=== PATIENT | female | born 1990 | race Caucasian/White ===

== ENCOUNTER 2022-12-18 20:20 | Emergency (ER) | payer SELFPAY ==
[2022-12-18] MEDS ORDERED: Sodium Chloride 0.9% 1,000 ML IV STA ×2 (20:52→23:01)
[2022-12-18 21:59] LABS: ACETAMINOPHEN 0 ug/mL (10-30); ESTIMATED GFR 77 mL/min (>60)
[2022-12-19] MEDS ORDERED: Magnesium Oxide 400 MG Tab PO ONE (02:48)
[2022-12-19] MEDS ORDERED: Sodium Chloride 0.9% 1,000 ML ONE (03:26)
[2022-12-19] MEDS ORDERED: Sodium Chloride 0.9% 1,000 ML IV SCH (04:15)
[2022-12-19] MEDS ORDERED: Lactated Ringers 1,000 ML IV SCH (11:15)
[2022-12-19] MEDS ORDERED: Ondansetron 4 MG/2 ML SDV IVPUSH ONE (18:56)
== END 2022-12-19 21:20 | disposition home or self-care (01) ==
LOC: JD.ED 20:20
DX: T42.6X2A Poisoning by other antiepileptic and sedative-hypnotic drugs, intentional self-harm, initial encounter (principal); T44.6X2A Poisoning by alpha-adrenoreceptor antagonists, intentional self-harm, initial encounter; T38.1X2A Poisoning by thyroid hormones and substitutes, intentional self-harm, initial encounter; F10.129 Alcohol abuse with intoxication, unspecified; Y90.1 Blood alcohol level of 20-39 mg/100 ml
CPT/HCPCS: 36415; 80053; 80143; 80179; 80306; 80307; 81025; 83735; 84443; 85007; 85027; 93005; 96361; 96374; 99285-25; A9270-GY; J2405; J7030; J7120